=== PATIENT | male | born 1990 | race Caucasian/White ===

== ENCOUNTER 2022-08-10 15:32 | Emergency (ER) | payer SELFPAY ==
--- NOTE | ~2022-08-10 | US_ITS ---
EXAMINATION: US SCROTUM CLINICAL INFORMATION: Right testicular pain. COMPARISON: None available. TECHNIQUE: A sonogram of the scrotum was performed assessing zepeda-scale appearance and color Doppler flow. Spectral Doppler analysis of the arterial and venous flow were performed in the testes bilaterally. FINDINGS: RIGHT: Right testicle measures 4.9 x 2.2 x 2.7 cm, volume 15.1 mL. No focal testicular parenchymal lesions are visualized. Spectral Doppler analysis of the arterial and venous flow is normal in the right testis. Right epididymal head is normal in size. No right hydrocele or varicocele is seen. Right epididymal Doppler flow is normal. LEFT: Left testicle measures 4.9 x 2.2 x 2.8 cm, volume 15.2 mL. No focal testicular parenchymal lesions are visualized. Spectral Doppler analysis of the arterial and venous flow is normal in the left testis. Left epididymal head is normal in size. No left hydrocele is seen. There are left varicoceles. Left epididymal Doppler flow is normal. US/US scrotum IMPRESSION: There are left varicoceles. The examination is otherwise unremarkable.
--- NOTE | ~2022-08-10 | US_ITS ---
EXAMINATION: US pelvic, limited, LIMITED/FOLLOW UP CLINICAL INFORMATION: Right inguinal hernia COMPARISON: None available. TECHNIQUE: Real-time ultrasound of the right inguinal region, in the area of previous hernia repair FINDINGS: No obvious hernia is seen. The patient is status post right inguinal hernia repair in March 2022. A 2.6 x 0.6 x 1.6 cm benign-appearing lymph node is seen in the right inguinal area. US/US pelvic limited IMPRESSION: No obvious hernia is seen.
--- NOTE | ~2022-08-10 | CT_ITS ---
EXAMINATION: CT ABDOMEN AND PELVIS WITHOUT CONTRAST CLINICAL INFORMATION: Right inguinal pain with Valsalva. COMPARISON: Pelvic ultrasound from today TECHNIQUE: Multidetector volumetric imaging was performed from the superior aspect of the liver through the pubic symphysis. Examination done during Valsalva. Sagittal and coronal reformatted images were obtained on the technologist's workstation. This CT examination was performed using dose optimization techniques as appropriate, variously including the following: *Automated exposure control *Adjustment of mA and/or kV according to patient size (this includes techniques or standardized protocols for targeted exams where dose is matched to indication/reason for exam; i.e. extremities or head) *Use of iterative reconstruction technique DLP: 552 mGy-cm FINDINGS: LUNG BASES: The visualized lung bases are unremarkable. LIVER, GALLBLADDER, AND BILIARY TREE: The liver is normal in size, shape, and attenuation. No focal hepatic lesion or biliary ductal dilatation is present. The gallbladder is unremarkable with no evidence of radiopaque gallstones, gallbladder wall thickening, or obvious pericholecystic inflammatory changes. PANCREAS: Unremarkable. SPLEEN: Unremarkable. ADRENAL GLANDS: Unremarkable. KIDNEYS AND URETERS: The kidneys are normal in size, shape, and attenuation. Rotated orientation of the right kidney. No hydronephrosis, hydroureter, or calculi seen. No perinephric stranding. BLADDER: Decompressed with no gross abnormality. GASTROINTESTINAL TRACT: The stomach is unremarkable. Normal caliber small bowel. There is no obstruction. No colonic wall thickening or inflammation. Mild to moderate diffuse colonic stool burden. Normal appendix. No free air or free fluid. ABDOMINAL WALL: Scarring along the right inguinal region from prior hernia repair. No hernia seen at this time. Prominent vessels seen in the inguinal canals and in the scrotum suggestive of possible varicoceles. No abdominal wall mass. LYMPH NODES: Normal. VASCULAR: Unremarkable. PELVIC VISCERA: The prostate and seminal vesicles are unremarkable. OSSEOUS STRUCTURES: No acute or suspicious osseous abnormality. Transitional anatomy of the lumbosacral junction. CT/CT abdomen pelvis wo IV con IMPRESSION: 1. No right inguinal hernia. Scarring along the right inguinal region from prior hernia repair. 2. Prominent vessels in the inguinal canals and scrotum suggestive of possible varicoceles. 3. Mild to moderate colonic stool burden. Fleischner guidelines were followed.
--- NOTE | ~2022-08-10 | US_ITS ---
EXAMINATION: US SCROTUM CLINICAL INFORMATION: Right testicular pain. COMPARISON: None available. TECHNIQUE: A sonogram of the scrotum was performed assessing zepeda-scale appearance and color Doppler flow. Spectral Doppler analysis of the arterial and venous flow were performed in the testes bilaterally. FINDINGS: RIGHT: Right testicle measures 4.9 x 2.2 x 2.7 cm, volume 15.1 mL. No focal testicular parenchymal lesions are visualized. Spectral Doppler analysis of the arterial and venous flow is normal in the right testis. Right epididymal head is normal in size. No right hydrocele or varicocele is seen. Right epididymal Doppler flow is normal. LEFT: Left testicle measures 4.9 x 2.2 x 2.8 cm, volume 15.2 mL. No focal testicular parenchymal lesions are visualized. Spectral Doppler analysis of the arterial and venous flow is normal in the left testis. Left epididymal head is normal in size. No left hydrocele is seen. There are left varicoceles. Left epididymal Doppler flow is normal. US/US scrotum doppler IMPRESSION: There are left varicoceles. The examination is otherwise unremarkable.
--- NOTE | ~2022-08-10 | XR_ITS ---
EXAMINATION: XR SHOULDER, RIGHT CLINICAL INFORMATION: Right shoulder pain status post fall. COMPARISON: None available. TECHNIQUE: AP external rotation, Grashey, scapular Y, and axillary views of the right shoulder. FINDINGS: The bones and soft tissues are normal. No fracture. Glenohumeral and acromioclavicular alignment is anatomic with normal joint space. No abnormal soft tissue calcifications. XR/XR shoulder RT min 2V IMPRESSION: Unremarkable right shoulder.
[2022-08-10 15:46] VITALS: BP 139/73; PULSE 75; RESP 18; TEMP 36.6; O2SAT 97; BMI 28.1
--- NOTE | 2022-08-10 15:46 | ED.GENADULT ---
HPI - General Adult General Chief complaint: General Medical Stated complaint: right shoulder/ hernia Time Seen by Provider: 08/10/22 18:58 Source: patient Mode of arrival: ambulatory Limitations: no limitations History of Present Illness HPI narrative: This is a 31-year-old male presenting to the emergency department complaints of right inguinal pain, and right shoulder pain. Patient reports today he is heavy lifting a heavy case at work, immediately started experiencing severe right-sided inguinal pain, and he fell back hyperextending his right shoulder, since then has not been able to lift shoulder above head. He has painful range of motion to the right shoulder since then. Patient reports he has been having constant severe pain to the right inguinal region for a few weeks worsening over the past few days and precipitated by heavy lifting. Tells me at times when he lifts heavy objects it goes into his testicles however no testicular pain at this time. Patient denies fevers, chills, nausea, vomiting, headache, vision changes, dizziness, weakness, chest pain, shortness of breath. When patient fell no head strike or loss of consciousness Patient did have an open hernia repair with mesh placement in March 2022 at [facility]. Related Data Previous Rx's Medication Instructions Recorded ketorolac 10 mg tablet 10 mg PO TID PRN pain 5 days #15 08/10/22 tabs Allergies Allergy/AdvReac Type Severity Reaction Status Date / Time Penicillins Allergy Intermediate Hives Verified 08/10/22 15:52 Review of Systems Review of Systems: Constitutional : No Weight loss, No Fever, No Chills, No Fatigue, No Malaise ENT/Mouth : No sore throat, No Rhinorrhea Eyes: No Eye Pain, No Swelling, No Redness Cardiovascular : No Chest Pain, No SOB, No Dyspnea on Exertion, No Orthopnea, No Edema, No Palpitations Respiratory : No Cough, No Sputum, No Wheezing Gastrointestinal : No Nausea, No Vomiting, No Diarrhea, No Constipation, + abdominal Pain, No Hematochezia, No Melena Genitourinary : No Dysuria, No Urinary Frequency, No Hematuria, Musculoskeletal : + joint pain, No Myalgias, No Joint Swelling Skin : No Skin Lesions, No rash Neuro : No Weakness, No Numbness, No Dizziness, No Headache Psych : No Anxiety/Panic, No Depression All other systems reviewed and are negative Yes all other systems are reviewed and are negative [facility] Past Medical History Attestation statement: The following information was validated with the patient. Source: old records reviewed and nursing notes reviewed Social History Social History Alcohol intake: never Smoked in Last 30 Days: No Use of substances other than those prescribed or required for medical reasons: No Advance Directives: No Advance Directives Information Provided: No Physical Exam ED Vital Signs: Vital Signs - 24 hr 08/10/22 15:46 08/10/22 19:51 Temperature 97.9 F 97.4 F Pulse Rate 75 58 Respiratory Rate 18 18 Blood Pressure 139/73 147/71 H Pulse Oximetry 97 99 Oxygen Delivery Method Room Air Room Air BMI result Body Mass Index 28.1 vss Appearance: Alert.? Oriented X3.? No acute distress.? Head: Normocephalic, atraumatic, no step-offs or deformities Eyes: Pupils equal, round and reactive to light.? Neck: Normal inspection.? Neck supple.? CVS: Normal heart rate and rhythm.? Pulses normal.? Respiratory: No respiratory distress.? Breath sounds normal.? Abdomen: Soft and + RLQ tenderness.? Genital: + pain with palpation overlying the right inguinal region overlying the surgical scar, surgical scar is linear in approximately 3-4 cm. No palpable bulge or hernia. Skin: Skin warm and dry.? Normal skin color.? Normal skin turgor.? Extremities: No lower extremity edema.? No calf ttp. 5/5 strength to bilateral upper and lower extremities +painful range of motion of right shoulder particularly with overhead movements, patient reports he is unable to lift his right shoulder above his head secondary to pain discomfort. 2+ radial pulses equal bilateral. No wrist drop. Cap refill less than 2 seconds bilateral upper extremity digits. Back: No midline tenderness, no C-spine tenderness, full range of motion, no CVA tenderness bilaterally Neuro: Oriented X 3.? No motor deficit.? No sensory deficit. CN 2-12 intact Course Course Course Narrative: RME - 31 y/o male presents with hx of right inguinal hernia repair, who states that he lifted something and felt something pop in his right groin at 3pm today, he fell backwards and hurt his right shoulder. States that he cannott left behind head. Limited ROM in right arm. Plan: pelvic U/S to look for right inguinal hernia, Xray of right shoulder Reevaluation(s) Reevaluation #1: CBC within normal limits. Chemistry unremarkable. Pelvic ultrasound with no obvious hernia seen. X-ray shoulder unremarkable. Still concerns for possible ligament or tendon injury, advised him to follow-up with the orthopedic team may require an MRI. Will give Toradol for pain. Did speak to surgery but this case recommends a CT pelvis with Valsalva, will also obtain abdomen CT as patient does have right lower quadrant pain to rule out appendicitis. Urine pending. Time: 19:47 Reevaluation #2: UA without infection. Scrotal ultrasound with left-sided varicoceles. Normal flow. No signs of torsion. CT abdomen and pelvis with no right inguinal hernia, scarring along the right inguinal region from prior hernia repair. Prominent vessels in the inguinal canals and scrotum suggestive of possible varicoceles. Qipt-th-uixsnept stool burden. Patient feeling better after Toradol. This case was discussed surgery, nothing to be done acutely about right-sided inguinal pain. Will have him follow-up with his surgeon, and PCP. Will also have him follow-up with ortho for right shoulder pain. Advised return with new or worsening symptoms. Educated patient on diagnosis and treatment plan, answered all question, patient verbalizes understanding. At this time patient will be discharged home, advised to return with new or worsening symptoms. Educated on worrisome signs and symptoms and when to return. At this time I feel comfortable discharge home. Time: 22:18 Medical Decision Making Medical Decision Making [facility] Narrative: 1930 31-year-old male presents with right inguinal pain and right shoulder pain, precipitated by heavy lifting. Patient reports shoulder pain started after his lifting heavy case at work. Physical exam painful range of motion of right shoulder particularly with overhead movements, patient reports he is unable to lift his right shoulder above his head secondary to pain discomfort. 2+ radial pulses equal bilateral. No wrist drop. Cap refill less than 2 seconds bilateral upper extremity digits. There is pain to palpation overlying the right inguinal region, no palpable bulges or hernias. Concerns for possible seroma to right inguinal region or possible inguinaldynia. Unlikely testicular torsion. Unlikely UTI. Patient does have abdominal tenderness to the right lower quadrant concerns for possible appendicitis. Unlikely acute abdomen, cholecystitis, pancreatitis or diverticulitis. Plan imaging, urine, basic labs. Differential Diagnosis Differential Diagnoses: The differential diagnosis associated with the presentation includes Concerns for possible seroma to right inguinal region or possible inguinaldynia. Unlikely testicular torsion. Unlikely UTI. Patient does have abdominal tenderness to the right lower quadrant concerns for possible appendicitis. Unlikely acute abdomen, cholecystitis, pancreatitis or diverticulitis. Admission/Observation Consideration of admission/observation: Escalation of care including admission/observation considered Unlikely Consult Healthcare Provider Management of the patient was discussed with: Dental Chair Assembler (Surgery) Lab Data MDM Lab Attestation statement: I reviewed the patient's lab results. 08/10/22 16:30 08/10/22 16:30 Labs: Lab Results 08/10/22 08/10/22 08/10/22 Range/Units 16:30 16:30 20:07 WBC 8.7 (4.8-10.8) X10*3/uL RBC 5.15 (4.60-5.80) X10*6/uL Hgb 15.5 (14.0-18.0) g/dl Hct 44.3 (42.0-52.0) % MCV 86.0 (80.0-98.0) fL MCH 30.1 (27.0-33.0) pg MCHC 35.0 (31.0-36.0) g/dl RDW 12.6 (11.0-16.0) % Plt Count 274 (160-400) X10*3/uL MPV 9.1 L (9.4-12.4) fL Immature Gran % (Auto) 0.3 (0.0-0.4) % Neut % (Auto) 64.4 (45-73) % Lymph % (Auto) 26.6 (20-40) % [place] % (Auto) 6.9 (2-11) % Eos % (Auto) 1.2 (0-4) % Baso % (Auto) 0.6 (0-2) % Lymph # (Auto) 2.3 (1.2-4.9) X10*3/uL [place] # (Auto) 0.6 (0.1-1.2) X10*3/uL Eos # (Auto) 0.1 (0.0-0.4) X10*3/uL Baso # (Auto) 0.1 (0.0-0.2) X10*3/uL Abs Immat Gran (auto) 0.03 (0.00-0.03) X10*3/uL Absolute Neuts (auto) 5.6 (2.0-8.3) x10*3/uL Absolute Nucleated RBC 0.000 (0.0-0.012) X10*3/uL Nucleated RBC % (auto) 0.0 (0.0-0.2) /100WBC Sodium 141 (135-145) mmol/L Potassium 4.6 (3.3-5.1) mmol/L Chloride 106 (96-108) mmol/L Carbon Dioxide 27 (22-29) mmol/L Anion Gap 13 (12-20) BUN 19 H (9-16) mg/dL Creatinine 1.17 (0.5-1.4) mg/dL Estim Creat Clear Calc 99.4 Estimated GFR > 60 Random Glucose 103 (60-115) mg/dL Calcium 9.9 (8.4-10.2) mg/dL Urine Color Yellow Urine Appearance Clear Urine pH 6.5 (5.0-9.0) Ur Specific [place] 1.025 (1.005-1.025) Urine Protein Negative (Neg-Trace) mg/dL Urine Glucose (UA) Negative (Negative) mg/dL Urine Ketones Negative (Negative) mg/dL Urine Blood Negative (Negative) Urine Nitrite Negative (Negative) Ur Leukocyte Esterase Negative (Negative) Independent Interpretation I performed an independent interpretation of an: Ultrasound and CT Scan Radiology Impression Discussion of test interpretation with radiology: I have reviewed the radiologist's reading. External Record Review External record reviewed: Inpatient record, Office record, Outpatient record, Prior outpatient labs, Prior outpatient radiology, Primary care record and Outside ED record Prescription Management I considered prescription management with: Pain Medication Core Measures AMI core measures followed: Yes Measure exclusions: not indicated Critical Care Time Critical Care Time Critical Care Time: No Discharge Plan Discharge Clinical Impression: Right groin pain, Acute pain of right shoulder, Right varicocele Patient Disposition: Home, Self-Care Instructions: Arthralgia (ED), Heat Pack Application (ED) Additional Instructions: Take your medications as prescribed. If you were prescribed antibiotics today, it is important that you take your medication to their entirety, do not skip any doses, do not finish them early. Follow-up with your primary care provider this week. Return to the emergency department with new or worsening symptoms. Such as fevers, chills, chest pain, shortness of breath, nausea, vomiting, dizziness, headache, vision changes, lethargy In case of emergency call 911 Follow-up with your surgeon who did the hernia repair. Please follow-up with the orthopedic team for right shoulder pain you may require an MRI for further evaluation of ligaments and tendons Toradol has been sent to your pharmacy, you tolerated this well in the department. Please take this as prescribed do not take this with ibuprofen, or other NSAIDs, do not mix this with alcohol. Side effects of this medication including increased risk for bleeding and possible kidney injury. XR/XR shoulder RT min 2V IMPRESSION: Unremarkable right shoulder. US/US pelvic limited IMPRESSION: No obvious hernia is seen. CT/CT abdomen pelvis wo IV con IMPRESSION: 1.? No right inguinal hernia. Scarring along the right inguinal region from prior hernia repair. 2.? Prominent vessels in the inguinal canals and scrotum suggestive of possible varicoceles. 3.? Mild to moderate colonic stool burden. ? ?US/US scrotum IMPRESSION: There are left varicoceles. The examination is otherwise unremarkable. Prescriptions: New ketorolac 10 mg tablet 10 mg PO TID PRN (Reason: pain) 5 Days Qty: 15 0RF Referrals: [facility] [place] Orthopedic Surgeons [Provider Group] - 2 days [facility] [place] Urology Services [Provider Group] - 1 week Miguel Angel Dumont MD [Primary Care Provider] - 2 days Stand Alone Forms: Work/School Release
[2022-08-10 16:35] LABS: MANUAL DIFF FLAG NO
[2022-08-10 16:36] LABS: Basophils Absolute Auto 0.1 X10*3/uL (0.0-0.2); Basophils Percent Auto 0.6 % (0-2); Eosinophils Absolute Auto 0.1 X10*3/uL (0.0-0.4); Eosinophils Percent Auto 1.2 % (0-4); Hematocrit 44.3 % (42.0-52.0); Hemoglobin 15.5 g/dl (14.0-18.0); Imm Gran Abs Auto 0.03 X10*3/uL (0.00-0.03); Imm Gran Pct Auto 0.3 % (0.0-0.4); Lymphocytes Absolute Auto 2.3 X10*3/uL (1.2-4.9); Lymphocytes Percent Auto 26.6 % (20-40); Mean Corpuscular Hemoglobin 30.1 pg (27.0-33.0); Mean Platelet Volume 9.1 fL (9.4-12.4); Monocytes Absolute Auto 0.6 X10*3/uL (0.1-1.2); Monocytes Percent Auto 6.9 % (2-11); Neutrophils Absolute Auto 5.6 x10*3/uL (2.0-8.3); Neutrophils Percent Auto 64.4 % (45-73); Platelet Count 274 X10*3/uL (160-400); Red Blood Count 5.15 X10*6/uL (4.60-5.80); Red Cell Distribution Width 12.6 % (11.0-16.0); White Blood Count 8.7 X10*3/uL (4.8-10.8)
[2022-08-10 16:49] LABS: Anion Gap 13 (12-20); Blood Urea Nitrogen 19 mg/dL (9-16); Calcium 9.9 mg/dL (8.4-10.2); Carbon Dioxide 27 mmol/L (22-29); Chloride 106 mmol/L (96-108); Creatinine Clr Calc Pharmacy 99.4; Estimated Glomerular Filt Rate > 60; Glucose Random 103 mg/dL (60-115); Potassium 4.6 mmol/L (3.3-5.1); Sodium 141 mmol/L (135-145)
[2022-08-10 19:51] VITALS: BP 147/71; PULSE 58; RESP 18; TEMP 36.3; O2SAT 99
[2022-08-10 20:20] LABS: Appearance Urine Clear; Color Urine Yellow; Glucose Urine UA Negative (Negative); Leukocyte Esterase Urine Negative (Negative); Nitrite Urine Negative (Negative); PH 6.5 (5.0-9.0); Specific Gravity - Urine 1.025 (1.005-1.025); Urine Blood Negative (Negative); Urine Ketones Negative (Negative); Urine Protein Negative (Neg-Trace)
--- NOTE | 2022-08-10 20:53 | PC.NURSE ---
Patient resting on stretcher at this time. No s/s of distress noted.
--- NOTE | 2022-08-10 23:01 | PC.NURSE ---
This RN assumed care for this patient [id number]. Discharge instructions and summary given as per MD assessment
[2022-08-10] MEDS: Ketorolac Tromethamine 15 MG/ML VIAL 30 MG IM (23:05)
== END 2022-08-10 23:16 | disposition home or self-care (01) ==
PROVIDERS: Physician Assistant; Emergency Provider Student in an Organized Health Care Education/Training Program; PCP Internal Medicine
DX: M25.511 Pain in right shoulder (principal); G89.11 Acute pain due to trauma; R10.31 Right lower quadrant pain; I86.1 Scrotal varices
CPT/HCPCS: 36415; 73030; 74176; 76857; 76870; 80048; 81003; 85025; 93975; 96372; 99284; J1885

== ENCOUNTER 2023-10-24 14:09 | Outpatient (AMB) | payer OTHER, SELFPAY ==
--- NOTE | 2023-10-24 14:24 | MHC.PC.OV ---
Vital Signs 10/24/23 14:31 Height 5 ft 8.5 in Weight 193 lb BMI 28.9 BP 118/70 Blood Pressure Location Lt brachial Position Sitting Respiration 14 Pulse 65 Pulse Source Pulse Oximeter Temp 98.2 F Temp Source Oral Pulse Oximetry (%) 99 Oxygen Delivery Method Room Air Intake Visit Reasons: Transfer from 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 Patient transferred from my panel at [facility] primary care. 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 He is working out 4-5 times per week. He has a treadmill at home. No chest pain or shortness of breath. He lives with his [facility]. He is compliant with INR checks. He is followed by the [facility] Coumadin clinic. Patient's music pastor is Dr. Neris Flores at [facility]. Patient has very stable bipolar disorder. He has been on the same regimen for years. No longer sees a therapist or psychiatrist. Patient is taking omeprazole for GERD. Symptoms return if he stops taking the medication. ROS: Constitutional: No unexplained weight loss, fever, chills, fatigue or night sweats. Eyes: Left eye blindness. No vision changes. Respiratory: No shortness of breath, cough or sputum production. Cardiovascular: No chest pain, chest pressure or chest discomfort. No palpitations or pedal edema. Gastrointestinal: No anorexia, nausea, vomiting or diarrhea. No abdominal pain or blood in stool. Neurologic: No headache, dizziness, syncope. + chronic numbness of right hand due to radial nerve palsy. Hematologic/Lymphatics: No bleeding or bruising. No painful lymph nodes. Endocrine: No cold or heat intolerance. No polyuria or polydipsia. Psychiatric: No depression or anxiety. No SI/HI. Physical exam: Constitutional: Alert, in no distress. Head: Normocephalic. Neck: Supple, Full range of motion. No lymphadenopathy. Respiratory: Clear to auscultation. Cardiovascular: S1 S2 regular. Mechanical heart sounds. + heart murmur. No edema. Gastrointestinal: Abdomen soft, non-tender, non-distended. Normal bowel sounds. No palpable masses. 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 DIC (disseminated intravascular coagulation) Depression Daytime somnolence Central retinal artery occlusion, left eye Bipolar 1 disorder Aorta aneurysm Abnormal CXR Right radial nerve palsy Insomnia Bipolar disorder Chronic anticoagulation History of cardiac arrest Surgical History (Updated 10/24/23 @ 14:44 by Almita Faustin CMA) History of open heart surgery S/P AVR H/O aortic valve replacement Family History (Updated 10/24/23 @ 14:47 by Almita Faustin CMA) Maternal Grandfather Breast cancer Diabetes Social History (Updated 10/24/23 @ 14:46 by Almita Faustin CMA) Housing: House Alcohol intake: never Patient Tobacco Use Status: Never used Tobacco e-Cigarette/Vaping Use: Never Used Second Hand Smoke Exposure: No service: No Current occupational status: employed Current occupation: [employer] Current occupational exposures/hazards: Yes ( everything ) Cognitive needs: No Hearing needs: No Vision needs: Yes (Legally blind in left eye) Questionnaire PHQ-9 Over the last 2 weeks, how often have you been bothered by any of the following problems? 1. Little interest or pleasure in doing things: more than half the days 2. Feeling down, depressed, or hopeless: more than half the days 3. Trouble falling or staying asleep, or sleeping too much: more than half the days 4. Feeling tired or having little energy: more than half the days 5. Poor appetite or overeating: not at all 6. Feeling bad about yourself - or that you are a failure or have let yourself or your family down: more than half the days 7. Trouble concentrating on things, such as reading the newspaper or watching television: not at all 8. Moving or speaking so slowly that other people could have noticed. Or the opposite - being so fidgety or restless that you have been moving around a lot more than usual: not at all 9. Thoughts that you would be better off or of hurting yourself in some way: not at all Total score: 10 Depression Screening Interpretation: Positive Depression Screening Done: Yes 79608 - PHQ-9 Billing: Yes Source: Developed by Drs. Gasper Pavon, Caprice Melchor, Barber Goodwin and colleagues, with an educational brian from [employer]. Thrive Questionnaire Date Thrive assessed: 10/24/23 I am a: Patient What is your living situation today?: I have a steady place to live Within the past 12 months, did the food you bought not last and you didn't have the money to get more?: Never true Within the past 12 months, did you worry whether your food would run out before you got money to buy more?: Never true Do you have trouble paying for medicines?: No Do you have trouble getting transportation to medical appointments?: No Do you have trouble paying your heating and electricity bill?: No Do you have trouble taking care of your child, family member or friend?: No Do you have trouble with day-to-day activities such as bathing, preparing meals, shopping, managing finances, etc.?: No Are you currently unemployed and looking for a job?: No Are you interested in more education?: No Please select the resources that you would like help with: None Currently or been in a relationship where the following occur: No concerns reported THRIVE Score: 0 AUDIT C Alcohol Use Questionnaire (AUDIT-C) 1. How often do you have a drink containing alcohol?: Never 3. How often do you have six or more drinks on one occasion?: Never Total Score: 0 PRATIK-7 AMB Questionnaire PRATIK-7 Date PRATIK - 7 assessed: 10/24/23 Feeling nervous, anxious, or on edge: 0 = Not at all Not being able to stop or control worryin = Not at all Worrying too much about different things: 0 = Not at all Trouble relaxin = Not at all Being so restless that it is hard to sit still: 0 = Not at all Becoming easily annoyed or irritable: 0 = Not at all Feeling afraid as if something awful might happen: 0 = Not at all Total PRATIK-7 score (0-4 normal; 5-9 mild; 10-14 moderate; 15-21 severe): 0 Source: Developed by Drs. Gasper Pavon, Caprice Melchor, Barber Goodwin and colleagues, with an educational brian from [employer]. PRATIK-7 Assessment Billing PRATIK-7 Assessment Tool: PRATIK-7 Assessment 63700 Physical exam (Primary Care) Vital Signs: Last Vital Signs Temp 98.2 F 10/24/23 14:31 Pulse 65 10/24/23 14:31 Resp 14 10/24/23 14:31 BP 118/70 10/24/23 14:31 Pulse Ox 99 10/24/23 14:31 Oxygen Delivery Method Room Air 10/24/23 14:31 BMI result Body Mass Index 28.9 Tobacco/Smoking Status: Tobacco use Status Tobacco use date assessed 10/24/23 10/24/23 14:43 Patient Tobacco Use Status Never used Tobacco 10/24/23 14:46 e-Cigarette/Vaping Use Never Used 10/24/23 14:46 PHQ-9: PHQ-9 Score PHQ-9: Total score 10 10/24/23 14:50 Depression Screening Interpretation: Positive Thrive Assessment: Date of Thrive Assessment Date Thrive assessed 10/24/23 10/24/23 14:50 Currently or been in a relationship where the following occur: No concerns reported Assessment and Plan Assessment & Plan (1) Bipolar 1 disorder: Code(s): F31.9 - Bipolar disorder, unspecified (2) Bipolar disorder: Code(s): F31.9 - Bipolar disorder, unspecified Qualifiers: Active/Remission status: currently active Current bipolar episode type: depressed Current episode severity: mild Qualified Code(s): F31.31 - Bipolar disorder, current episode depressed, mild (3) Central retinal artery occlusion, left eye: Code(s): H34.12 - Central retinal artery occlusion, left eye (4) H/O aortic valve replacement: Comment: On-X valve Code(s): Z95.2 - Presence of prosthetic heart valve (5) Chronic anticoagulation: Code(s): Z79.01 - custodial (current) use of anticoagulants (6) GERD (gastroesophageal reflux disease): Code(s): K21.9 - Gastro-esophageal reflux disease without esophagitis Plan In summary this is a 32-year-old male with complex cardiac history followed by Cardiology at [facility]. He is on lifetime anticoagulation with Coumadin and followed by the [facility] Coumadin clinic. Referral sent. Compliant with INR checks. Continue current medications. Patient has been stable on his psych regimen for years. Offered referral to psychiatrist, but he would prefer I continue prescribing unless an issue comes up. Continue omeprazole for GERD. Patient has symptoms when he tries to discontinue med. Lifestyle modifications reviewed. Schedule physical in 6 months. 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) use of anticoagulants, Z95.2 - Presence of prosthetic heart valve Medications: New omeprazole 20 mg PO ONCE 90 caps 3RF Discontinued ketorolac Discontinued Reason: Patient no longer taking 10 mg PO TID 5 days PRN 15 tabs 0RF pain Coding Level of Care Code Est Pt Level 4 (44431) Complex EM visit Add On G2211 Diagnoses Bipolar 1 disorder F31.9 Bipolar affective disorder, currently depressed, mild F31.31 Active/Remission status: currently active Current bipolar episode type: depressed Current episode severity: mild Central retinal artery occlusion, left eye H34.12 H/O aortic valve replacement Z95.2 Chronic anticoagulation Z79.01 GERD (gastroesophageal reflux disease) K21.9 Additional Codes PRATIK-7 Assessment Billing - PRATIK-7 Assessment Tool: PRATIK-7 Assessment 95808 ([id number])
[2023-10-24 14:31] VITALS: BP 118/70; PULSE 65; RESP 14; TEMP 36.8; O2SAT 99; BMI 28.9
== END 2023-10-24 15:04 | disposition home or self-care (01) ==
PROVIDERS: PCP Physician Assistant Medical; Visit Provider Physician Assistant Medical
DX: F31.9 Bipolar disorder, unspecified (principal); F31.31 Bipolar disorder, current episode depressed, mild; H34.12 Central retinal artery occlusion, left eye; Z95.2 Presence of prosthetic heart valve; Z79.01 Long term (current) use of anticoagulants; K21.9 Gastro-esophageal reflux disease without esophagitis
CPT/HCPCS: 96127; 99214; G2211

== ENCOUNTER 2024-05-07 09:46 | Outpatient (AMB) | payer OTHER, SELFPAY ==
--- NOTE | 2024-05-07 09:59 | MHC.PC.OV ---
Vital Signs 05/07/24 10:05 Weight 202 lb 6 oz BP 130/80 Blood Pressure Location Lt brachial Position Sitting Respiration 14 Pulse 80 Pulse Source Pulse Oximeter Pulse Oximetry (%) 99 Oxygen Delivery Method Room Air Intake Visit Reasons: checked for sleep apnea Intake Note: Discuss sleep apnea. [employer] Template Maker Required: No Allergies Penicillins Allergy (Intermediate, Verified 05/07/24 10:02) Hives heparin Allergy (Unknown, Verified 05/07/24 10:02) Unknown Tobacco use date assessed: 10/24/23 Dental Screening Dental Screen Date: 10/24/23 HPI HPI Comments History of Present Illness Details This is a 33-year-old male with a past medical history of GERD, left eye blindness, history of aortic valve replacement, history of cardiac arrest, chronic anticoagulation, bipolar disorder, insomnia presenting to discuss possible sleep apnea. The patient endorses chronic fatigue for 20 years. He naps every day, and he even did this back in high school. Patient reports snoring, non restorative sleep. He will doze off if he is watching a TV show at home. Patient also says that he makes a weird sound in his sleep that was reported by his family members and then he wakes himself up gasping for air. He has tried using a wedge pillow, nasal sprays and breathe right strips. He denies nasal congestion or sinus issues. Patient has never had a sleep study. He does not drink alcohol. He reports he is still seeing the same therapist, and he is stable on his psychiatric medications. He also reports having the flu and pneumonia vaccines done at [facility] this season. He has a follow up with his eligibility supervisor in [place] next week, and they will do a routine stress test and echocardiogram for him. ROS: Constitutional: No unexplained weight loss, fever, chills or night sweats. ENT: No hearing loss, sneezing, congestion, runny nose or sore throat. Respiratory: No shortness of breath, cough or sputum production. Cardiovascular: +Stable pain at surgical site since surgery. No exertional chest pain, chest pressure or chest discomfort. No palpitations or pedal edema. Gastrointestinal: No anorexia, nausea, vomiting or diarrhea. No abdominal pain or blood in stool. Neurologic: No headache, dizziness, syncope Physical exam: Constitutional: Alert, in no distress. Eyes: Pupils are equal, round and reactive to light. Extraocular muscles intact. Ear, Nose and Throat: Canals clear. TMs normal. Normal nasal mucosa. No nasal discharge. No oral lesions. Neck: Supple, Full range of motion. No lymphadenopathy. No palpable thyroid masses. Respiratory: Clear to auscultation. Cardiovascular: S1 S2 regular. Mechanical heart sounds. + heart murmur. Extremities: Warm and well perfused. No clubbing, cyanosis or edema. 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 DIC (disseminated intravascular coagulation) Depression Daytime somnolence Central retinal artery occlusion, left eye Bipolar 1 disorder Aorta aneurysm Abnormal CXR Right radial nerve palsy Insomnia Bipolar disorder Chronic anticoagulation History of cardiac arrest Surgical History (Updated 10/24/23 @ 14:44 by Almita Faustin CMA) History of open heart surgery S/P AVR H/O aortic valve replacement Family History (Updated 10/24/23 @ 14:47 by Almita Faustin CMA) Maternal Grandfather Breast cancer Diabetes Social History (Updated 10/24/23 @ 14:46 by Almita Faustin CMA) Housing: House Alcohol intake: never Patient Tobacco Use Status: Never used Tobacco e-Cigarette/Vaping Use: Never Used Second Hand Smoke Exposure: No service: No Current occupational status: employed Current occupation: [employer] Current occupational exposures/hazards: Yes ( everything ) Cognitive needs: No Hearing needs: No Vision needs: Yes (Legally blind in left eye) Questionnaire PHQ-9 Over the last 2 weeks, how often have you been bothered by any of the following problems? 1. Little interest or pleasure in doing things: nearly every day 2. Feeling down, depressed, or hopeless: nearly every day 3. Trouble falling or staying asleep, or sleeping too much: nearly every day 4. Feeling tired or having little energy: nearly every day 5. Poor appetite or overeating: nearly every day 6. Feeling bad about yourself - or that you are a failure or have let yourself or your family down: nearly every day 7. Trouble concentrating on things, such as reading the newspaper or watching television: nearly every day 8. Moving or speaking so slowly that other people could have noticed. Or the opposite - being so fidgety or restless that you have been moving around a lot more than usual: not at all 9. Thoughts that you would be better off or of hurting yourself in some way: nearly every day Total score: 24 Source: Developed by Drs. Gasper Pavon, Caprice Melchor, Barber Goodwin and colleagues, with an educational brian from [employer]. Thrive Questionnaire Date Thrive assessed: 10/24/23 I am a: Patient What is your living situation today?: I have a steady place to live Within the past 12 months, did the food you bought not last and you didn't have the money to get more?: Never true Within the past 12 months, did you worry whether your food would run out before you got money to buy more?: Never true Do you have trouble paying for medicines?: No Do you have trouble getting transportation to medical appointments?: No Do you have trouble paying your heating and electricity bill?: No Do you have trouble taking care of your child, family member or friend?: No Do you have trouble with day-to-day activities such as bathing, preparing meals, shopping, managing finances, etc.?: No Are you currently unemployed and looking for a job?: No Are you interested in more education?: No Please select the resources that you would like help with: None Currently or been in a relationship where the following occur: No concerns reported THRIVE Score: 0 AUDIT C Alcohol Use Questionnaire (AUDIT-C) 1. How often do you have a drink containing alcohol?: Never Total Score: 0 PRATIK-7 AMB Questionnaire PRATIK-7 Date PRATIK - 7 assessed: 10/24/23 Feeling nervous, anxious, or on edge: 3 = Nearly every day Not being able to stop or control worryin = Not at all Worrying too much about different things: 0 = Not at all Trouble relaxin = Not at all Being so restless that it is hard to sit still: 3 = Nearly every day Becoming easily annoyed or irritable: 3 = Nearly every day Feeling afraid as if something awful might happen: 0 = Not at all Total PRATIK-7 score (0-4 normal; 5-9 mild; 10-14 moderate; 15-21 severe): 9 Source: Developed by Drs. Gasper Pavon, Caprice Melchor, Barber Goodwin and colleagues, with an educational brian from [employer]. Physical exam (Primary Care) Vital Signs: Last Vital Signs Pulse 80 05/07/24 10:05 Resp 14 05/07/24 10:05 BP 130/80 05/07/24 10:05 Pulse Ox 99 05/07/24 10:05 Oxygen Delivery Method Room Air 05/07/24 10:05 Tobacco/Smoking Status: Tobacco use Status Tobacco use date assessed 10/24/23 05/07/24 10:01 Patient Tobacco Use Status Never used Tobacco 05/07/24 10:01 e-Cigarette/Vaping Use Never Used 05/07/24 10:01 PHQ-9: PHQ-9 Score PHQ-9: Total score 05/07/24 10:12 Thrive Assessment: Date of Thrive Assessment Date Thrive assessed 10/24/23 05/07/24 10:01 Currently or been in a relationship where the following occur: No concerns reported Coding Level of Care Code Est Pt Level 4 (77612) Complex EM visit Add On G2211 Diagnoses H/O aortic valve replacement Z95.2 Bipolar 1 disorder F31.9 Chronic fatigue R53.82 Non-restorative sleep G47.8 Assessment & Plan Assessment & Plan (1) H/O aortic valve replacement: Comment: On-X valve Code(s): Z95.2 - Presence of prosthetic heart valve Category: Surgical Plan: Patient is on lifetime anticoagulation. He will follow up with his cardiology team in [place] next week for a routine visit, stress test and echocardiogram. (2) Bipolar 1 disorder: Code(s): F31.9 - Bipolar disorder, unspecified Category: Medical Plan: Stable. Continue current medications. Followed by a therapist. (3) Chronic fatigue: Code(s): R53.82 - Chronic fatigue, unspecified Category: Medical Plan: Snoring, chronic fatigue, non restorative sleep and gasping arousals all concerning for untreated sleep apnea. Proceed with sleep study. Continue using a wedge pillow and avoid sleeping supine. Continue avoidance of alcohol. Weight loss encouraged. (4) Non-restorative sleep: Code(s): G47.8 - Other sleep disorders Category: Medical Plan Schedule physical exam in 4 months. Routine labs also ordered for the patient to have done fasting. Orders: Orders RT home sleep study Today G47.8 - Other sleep disorders, R06.89 - Other abnormalities of breathing, R53.82 - Chronic fatigue, unspecified Liver Panel Today F31.31 - Bipolar disorder, current episode depressed, mild, G47.00 - Insomnia, unspecified, K21.9 - Gastro-esophageal reflux disease without esophagitis, R53.82 - Chronic fatigue, unspecified, Z86.74 - Personal history of sudden cardiac arrest Complete Blood Count no Diff Today F31.31 - Bipolar disorder, current episode depressed, mild, G47.00 - Insomnia, unspecified, K21.9 - Gastro-esophageal reflux disease without esophagitis, R53.82 - Chronic fatigue, unspecified, Z86.74 - Personal history of sudden cardiac arrest Comprehensive Met. Panel Today F31.31 - Bipolar disorder, current episode depressed, mild, G47.00 - Insomnia, unspecified, K21.9 - Gastro-esophageal reflux disease without esophagitis, R53.82 - Chronic fatigue, unspecified, Z86.74 - Personal history of sudden cardiac arrest TSH reflex Free T4 Today F31.31 - Bipolar disorder, current episode depressed, mild, G47.00 - Insomnia, unspecified, K21.9 - Gastro-esophageal reflux disease without esophagitis, R53.82 - Chronic fatigue, unspecified, Z86.74 - Personal history of sudden cardiac arrest
[2024-05-07 10:05] VITALS: BP 130/80; PULSE 80; RESP 14; O2SAT 99
--- OUTSIDE RECORDS SUMMARY | 2024-05-07 10:57 | XMS_ITS | Data Portability ---
Author Organization LANIE [facility], [address] Address [place] [address] Assessment No assessment recorded. Plan of Treatment Reminders Order Date Submit Date Provider Last Modified By Organization Details Last Modified Time Details Appointments None record ed. Lab None record ed. Referral None record ed. Procedures None record ed. Surgeries None record ed. Imaging None record ed. Medication Orders None record ed. Patient TargetsNo targets recorded. Patient InstructionsNo instructions recorded. Reason for Referral None Reported. Procedures Surgical History Date Name Laterality Status Provider Name and Address Organization Details Recorded Time -UDS Send Out Template DOT completed Shreya [facility] 06/08/2023 14:47:24 Imaging Results None recorded. Procedure Notes None recorded. Medical Equipment None Reported. Vitals None Recorded Social History None recorded. Functional Status None recorded. Mental Status None recorded. Family History Nothing Reported. Medical History No medical history recorded. Past Encounters Encounter ID Performer Location Encounter Start Date Encounter Closed Date Diagnosis/Indication Diagnosis SNOMED-CT Code Diagnosis ICD10 Code Diagnosis Note [id number] 09005_Cor [facility] [place] [address] 02/19/2015 09:32:27 02/19/2015 10:28:43 [id number] 09005_Cor [place] [address] [place] [address] 03/21/2015 15:56:46 03/21/2015 16:31:28 [id number] 21005_Chi [facility] [address] [place] [address] 06/06/2020 19:49:49 06/06/2020 20:08:49 [id number] 20995_Chi [facility] [place] [address] 2016 16:13:14 2016 16:58:05 [id number] 20994_Wes [address] [address] 08/02/2019 10:34:44 08/02/2019 11:26:16 [id number] 09005_Cor alSprings [address] [place] [place] [address] 03/25/2016 18:19:55 03/25/2016 18:58:51 [id number] [address] [place] [address] 07/27/2021 08:03:50 07/27/2021 13:24:44 [id number] [address] [place] [address] 08/24/2021 08:54:36 08/24/2021 10:51:45 [id number] 20994_Wes [address] [address] 02/09/2019 10:07:56 02/09/2019 11:16:52 [id number] 20994_W[address] [address] 11/02/2019 11:07:40 11/02/2019 12:42:25 [id number] 21005_Chi cristieMemo rialDr [address] [place] [address] 08/19/2021 12:31:47 08/19/2021 14:34:38 [id number] 09005_Cor alSprings [address] [place] [place] [address] 05/25/2017 09:48:06 05/25/2017 10:14:20 [id number] 60019_Gol [facility] [address] [place] [address] 06/06/2018 11:23:23 06/06/2018 12:43:59 [id number] LANIE BEAVER [address] [address] 06/08/2023 14:34:10 06/08/2023 15:06:58 History and physical examination, occupation [id number] Z02.1 Health Concerns Section Related Observation LastModified by Organization Detai ls LastModified Time None Recorded Concern Status LastModified by Organization Details LastModified Time None Recorded Advance Directives Directive None Recorded Payers Encounter Date Sequence Insurance Name Policy Number Policy العلي Covered Member ID العلي Member ID Guarantor Name 06/08/2023 OC-ESCREEN Oc-Escree n [[id number]] FIFI Acosta
== END 2024-05-07 10:27 | disposition home or self-care (01) ==
PROVIDERS: PCP Physician Assistant Medical; Visit Provider Physician Assistant Medical
DX: Z95.2 Presence of prosthetic heart valve (principal); F31.9 Bipolar disorder, unspecified; R53.82 Chronic fatigue, unspecified; G47.8 Other sleep disorders

== ENCOUNTER → 2024-05-07 09:46 | Outpatient (BNVA) | payer OTHER, SELFPAY | PROVIDERS: PCP Physician Assistant Medical; Visit Provider Physician Assistant Medical | DX: F31.9 Bipolar disorder, unspecified (principal); R53.82 Chronic fatigue, unspecified; G47.8 Other sleep disorders; Z95.2 Presence of prosthetic heart valve; Z79.01 Long term (current) use of anticoagulants | CPT/HCPCS: 99212 ==

== ENCOUNTER 2024-07-06 14:12 | Outpatient (AMB) | payer OTHER, SELFPAY ==
--- OUTSIDE RECORDS SUMMARY | 2024-07-06 14:28 | XMS_ITS | Data Portability ---
Author Organization LANIE Bautista [facility], [address] [place] [address] Assessment No assessment recorded. Plan of Treatment [...] Name and Address Organization Details Recorded Time OC-UDS Send Out Template DOT completed Shreya Plata [...] SNOMED-CT Code Diagnosis ICD10 Code Diagnosis Note [id number] 09005_Cora lSprings 09005_Cor alSprings [address] [place] [address] 02/19/2015 09:32:27 02/19/2015 10:28:43 [id number] 09005_Cora lSprings 09005_Cor alSprings [address] [place] [address] 03/21/2015 15:56:46 03/21/2015 16:31:28 [id number] 20[address] 20995_Chi [facility] [address] [place] [address] 06/06/2020 19:49:49 06/06/2020 20:08:49 [id number] 20995[facility] [facility] [address] _Chi [address] [address] 2016 16:13:14 2016 16:58:05 [id number] 20994_[facility] _Wes [address] [address] 08/02/2019 10:34:44 08/02/2019 11:26:16 [id number] 09005_Cora lSprings 09005_Cor alSprings [address] [place] [address] 03/25/2016 18:19:55 03/25/2016 18:58:51 [id number] [address] [place] [address] 07/27/2021 08:03:50 07/27/2021 13:24:44 [id number] [address] [place] [address] 08/24/2021 08:54:36 08/24/2021 10:51:45 [id number] 2099_[facility] [address] [address] 02/09/2019 10:07:56 02/09/2019 11:16:52 [id number] 2099_[facility] [address] [address] 11/02/2019 11:07:40 11/02/2019 12:42:25 [id number] 20995_[address] al[address] _Chi [facility] 150[address] [place] [address] 08/19/2021 12:31:47 08/19/2021 14:34:38 [id number] 09005_Cora lSprings 09005_Cor alSprings [address] [place] [address] 05/25/2017 09:48:06 05/25/2017 10:14:20 [id number] [address] [place] [address] 06/06/2018 11:23:23 06/06/2018 12:43:59 [id number] LANIE Mcwilliams 21004_W[address] [address] 06/08/2023 14:34:10 06/08/2023 15:06:58 History and physical examination, occupation [id number] Z02.1 Health Concerns Section Related Observation LastModified by Organization Detai ls LastModified Time None Recorded Concern Status LastModified by Organization Details LastModified Time None Recorded Advance Directives Directive None Recorded Payers Encounter Date Sequence Insurance Name Policy Number Policy العلي Covered Member ID العلي Member ID Guarantor Name 06/08/2023 OC-ESCREEN Oc-Escree n [[id number]] FIFI Acosta
--- NOTE | 2024-07-06 14:42 | AM.OFFWIN_ITS ---
Intake Vital Signs 07/06/24 14:51 Height 5 ft 8.5 in Weight 195 lb BMI 29.2 BP 122/80 Blood Pressure Location Rt brachial Position Sitting Pulse 78 Pulse Source Pulse Oximeter Pulse Oximetry (%) 98 Oxygen Delivery Method Room Air Intake Visit Reasons: EP-inguinal hernia Intake Note: Patient here for inguinal hernia that has been present for over 1 week. Patient Tobacco Use Status: Never used Tobacco Allergies Penicillins Allergy (Intermediate, Verified 07/06/24 14:51) Hives heparin Allergy (Unknown, Verified 07/06/24 14:51) Unknown Do you need a note to return to daycare/school/sports/work: Yes HPI HPI Comments History of Present Illness Details History of Present Illness - The patient is a 33-year-old male pres enting with suspected recurrence of right inguinal hernia. - He reports a previous right inguinal h ernia repair in 2019, performed by Dr. Barker at [facility]. - A few days prior, following lifting a heavy object, he experienced a popping sensation and subsequent pain radiating to his right testicle, reminiscent of previous hernia symptoms. - Despite the presence of pain, no signi ficant swelling or bulge was observed by the patient, although he notes exacerbation of pain with lifting. - Absent are fevers, unbearable pain, or abnormal discharge from the affected area. - Historically, the patient had an inver patricia hernia, which may have contributed to his past surgical procedure and current suspicions. - patient declined a design drafter for the G U exam Physical Exam General: Cooperative, healthy appearing, comfortable, no acute distress and well developed Orientation: Patient oriented x3 Limitations: No lifting anything over 20 pounds for right now Head: Normal to inspection Ears: Hearing grossly normal bilaterally Nose: Normal External nose present Face and sinus: Normal facial exam Eyes: Appearance normal, both eyes and all related structures Neck: Normal visual inspection and Yes full ROM Respiratory: Normal respiratory effort and able to speak in complete sentences. 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 DIC (disseminated intravascular coagulation) Depression Daytime somnolence Central retinal artery occlusion, left eye Bipolar 1 disorder Aorta aneurysm Abnormal CXR Right radial nerve palsy Insomnia Bipolar disorder Chronic anticoagulation History of cardiac arrest Surgical History (Updated 07/06/24 @ 15:07 by LANIE Maria) History of inguinal hernia repair History of open heart surgery S/P AVR H/O aortic valve replacement Family History (Updated 10/24/23 @ 14:47 by Almita Faustin CMA) Maternal Grandfather Breast cancer Diabetes Social History (Updated 10/24/23 @ 14:46 by Almita Faustin CMA) Housing: House Alcohol intake: never Patient Tobacco Use Status: Never used Tobacco e-Cigarette/Vaping Use: Never Used Second Hand Smoke Exposure: No service: No Current occupational status: employed Current occupation: [employer] Current occupational exposures/hazards: Yes ( everything ) Cognitive needs: No Hearing needs: No Vision needs: Yes (Legally blind in left eye) Review of Systems Const All systems reviewed & are unremarkable except as noted in HPI and below Physical Exam Vital Signs: Last Vital Signs Pulse 78 07/06/24 14:51 BP 122/80 07/06/24 14:51 Pulse Ox 98 07/06/24 14:51 Oxygen Delivery Method Room Air 07/06/24 14:51 BMI result Body Mass Index 29.2 Assessment & Plan Assessment & Plan (1) Right inguinal hernia: Code(s): K40.90 - Unilateral inguinal hernia, without obstruction or gangrene, not specified as recurrent Plan: Vital signs are stable, patient well-appearing, physical exam consistent with a possible right inguinal hernia recurrence, no concern for incarceration or strangulation. I?ve guided the patient on signs and symptoms warranting emergency attention. For further assessment, I will coordinate with his primary care provider, Sonia Means PA-C, to arrange an ultrasound for diagnostic confirmation. Activity restriction is advised, and a work note limiting him to lifting no more than 20 pounds will be issued. Patient was informed and verbally consented to the use of an ambient scribe for clinic note documentation during this visit. Coding Level of Care Code Est Pt Level 3 (78834) Diagnoses Right inguinal hernia K40.90
[2024-07-06 14:51] VITALS: BP 122/80; PULSE 78; O2SAT 98; BMI 29.2
== END 2024-07-06 15:10 | disposition home or self-care (01) ==
PROVIDERS: PCP Physician Assistant Medical; Visit Provider Physician Assistant
DX: K40.90 Unilateral inguinal hernia, without obstruction or gangrene, not specified as recurrent (principal)

== ENCOUNTER → 2024-07-06 14:12 | Outpatient (BNVA) | payer OTHER, SELFPAY | PROVIDERS: PCP Physician Assistant Medical; Visit Provider Physician Assistant | DX: K40.90 Unilateral inguinal hernia, without obstruction or gangrene, not specified as recurrent (principal) | CPT/HCPCS: 99212 ==

== ENCOUNTER → 2024-09-12 13:51 | Outpatient (REF) | payer OTHER, SELFPAY ==
--- OUTSIDE RECORDS SUMMARY | 2024-09-12 14:41 | XMS_ITS | Data Portability ---
Author Organization LANIE - [facility], [address] Address [place] [address] Assessment No assessment recorded. Plan of Treatment [...] -UDS Send Out Template DOT completed Shreya Bautista [facility] 06/08/2023 14:47:24 Imaging Results None recorded. Procedure Notes None recorded. Medical Equipment None Reported. Vitals None Recorded Social History None recorded. Functional Status None recorded. Mental Status None recorded. Family History Nothing Reported. Medical History No medical history recorded. Past Encounters Encounter ID Performer Location Encounter Start Date Encounter Closed Date Diagnosis/Indication Diagnosis SNOMED-CT Code Diagnosis ICD10 Code Diagnosis Note [id number] 09005_[facility]Spr[facility] 09005[facility] [address] [facility] [facility] [place] [address] 02/19/2015 09:32:27 02/19/2015 10:28:43 [id number] 09005_[facility] lSpr[facility] 09005_[facility] [facility] [place] [address] 03/21/2015 15:56:46 03/21/2015 16:31:28 [id number] 20995_[facility] _Chi [address] [address] 06/06/2020 19:49:49 06/06/2020 20:08:49 [id number] 20[address] [address] _Chi [address] [address] 2016 16:13:14 2016 16:58:05 [id number] 20994_[facility] _Wes [address] [address] 08/02/2019 10:34:44 08/02/2019 11:26:16 [id number] 09005_Cora lSprings 09005_Cor alSprings [address] [facility] [place] [address] 03/25/2016 18:19:55 03/25/2016 18:58:51 [id number] [address] [place] [address] 07/27/2021 08:03:50 07/27/2021 13:24:44 [id number] [address] [place] [address] 08/24/2021 08:54:36 08/24/2021 10:51:45 [id number] 20994_[facility] 20994_Wes [address] [address] 02/09/2019 10:07:56 02/09/2019 11:16:52 [id number] 2099_[facility] _Wes [address] [address] 11/02/2019 11:07:40 11/02/2019 12:42:25 [id number] 20995_[facility] [facility] al[address] Chi [address] [address] 08/19/2021 12:31:47 08/19/2021 14:34:38 [id number] 09005_Cora lSprings 09005_Cor alSpr[address] [place] [address] 05/25/2017 09:48:06 05/25/2017 10:14:20 [id number] [address] [place] [address] 06/06/2018 11:23:23 06/06/2018 12:43:59 [id number] LANIE Mcwilliams 21004_W[address] [address] 06/08/2023 14:34:10 06/08/2023 15:06:58 History and physical examination, occupation [id number] Z02.1 Health Concerns Section Related Observation LastModified by Organization Detai ls LastModified Time None Recorded Concern Status LastModified by Organization Details LastModified Time None Recorded Advance Directives Directive None Recorded Payers Insurance Date Sequence Insurance Name Policy Number Policy العلي Covered Member ID العلي Member ID Guarantor Name 05/05/2024 OC-ESCREEN Oc-Escree n [[id number]] FIFI Acosta 05/05/2024 [address] [facility] [id number] Barber Acosta [id number] Barber Acosta
== END ==
LOC: HO.SL 13:51
PROVIDERS: PCP Physician Assistant Medical; Visit Provider Physician Assistant Medical
DX: G47.8 Other sleep disorders (principal); R06.89 Other abnormalities of breathing; R53.82 Chronic fatigue, unspecified
CPT/HCPCS: 95806

== ENCOUNTER → 2024-09-12 14:07 | Outpatient (BNV) | payer OTHER, SELFPAY | PROVIDERS: PCP Physician Assistant Medical; Visit Provider Internal Medicine | DX: R06.83 Snoring (principal) | CPT/HCPCS: 95806 ==

== ENCOUNTER 2024-12-27 13:31 | Outpatient (AMB) | payer OTHER, SELFPAY ==
--- NOTE | 2024-12-27 13:46 | A.OFFPC_ITS ---
Vital Signs 12/27/24 13:50 Height 5 ft 8.5 in Weight 201 lb 5 oz BMI 30.2 BP 120/78 Blood Pressure Location Lt brachial Position Sitting Respiration 14 Pulse 83 Pulse Source Pulse Oximeter Temp 98.1 F Temp Source Temporal Artery Scan Pulse Oximetry (%) 97 Oxygen Delivery Method Room Air Intake Visit Reasons: need work note, med refill, paperwork to be filled Allergies Penicillins Allergy (Intermediate, Verified 12/27/24 13:47) Hives heparin Allergy (Unknown, Verified 12/27/24 13:47) Unknown Medication List - Last Reconciled 12/29/24 by LANIE Maria aspirin 81 mg PO DAILY buspirone 15 mg PO BID carvedilol 12.5 mg PO BID fluoxetine 40 mg PO DAILY lamotrigine 150 mg PO BID omeprazole 20 mg PO ONCE prothrombin time/INR test metr As directed rosuvastatin 5 mg PO DAILY trazodone 50 mg PO BEDTIME PRN warfarin 5 mg PO DAILY Tobacco use date assessed: 12/27/24 Dental Screening Dental Screen Date: 12/27/24 Did you have a dental visit in the last 12 months?: Yes Did you have a dental problem in the last 6 months where you did not have access to dental care?: No Was dental information given to patient?: Patient has dentist HPI HPI Comments History of Present Illness Details This is a 34-year-old male with a past medical history of 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 Clinical history if provided by the patient as discharge summary is unavailble at the time of the visit. Patient was taken by ambulance to [facility] with acute chest pain and dyspnea then transferred to [facility] where he underwent cardiac catheterization. Patient was ultrimately diagnosed with pulmonary stenosis. Patient reports he will be undergoing surgery likely in January at [facility]. He provided a note from his deployment engineer, Dr. Gutiérrez. He is unable to perform his job functions. 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 He has forms for completion. ROS: Constitutional: No unexplained weight loss, fever, chills or night sweats. +chronic fatigue. Eyes: Left eye blindness. No vision changes. Respiratory: +PELAYO Cardiovascular: +chest pain with exertion Gastrointestinal: No anorexia, nausea, vomiting or diarrhea. No abdominal pain or blood in stool. Neurologic: No headache, dizziness, syncope. + chronic numbness of right hand due to radial nerve palsy. Psychiatric: No depression or anxiety. No SI/HI. Physical exam: Constitutional: Alert, in no distress. Head: Normocephalic. Neck: Supple, Full range of motion. No lymphadenopathy. Respiratory: Clear to auscultation. Cardiovascular: S1 S2 regular. Mechanical heart sounds. + heart murmur. No edema. Gastrointestinal: Abdomen soft, non-tender, non-distended. Normal bowel sounds. No palpable masses. 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 DIC (disseminated intravascular coagulation) Depression Daytime somnolence Central retinal artery occlusion, left eye Bipolar 1 disorder Aorta aneurysm Abnormal CXR Right radial nerve palsy Insomnia Bipolar disorder Chronic anticoagulation History of cardiac arrest Surgical History (Updated 07/06/24 @ 15:07 by LANIE Maria) History of inguinal hernia repair History of open heart surgery S/P AVR H/O aortic valve replacement Family History (Updated 12/27/24 @ 13:50 by Yakelin Laurent CMA) Maternal Grandfather Breast cancer Diabetes Mother FH: mental illness Father FH: mental illness Schizo affective schizophrenia Social History (Updated 12/27/24 @ 13:50 by Yakelin Laurent CMA) Housing: House Alcohol intake: never Patient Tobacco Use Status: Never used Tobacco e-Cigarette/Vaping Use: Never Used Second Hand Smoke Exposure: No service: No Current occupational status: employed Current occupation: [employer] Current occupational exposures/hazards: Yes ( everything ) Cognitive needs: No Hearing needs: No Vision needs: Yes (Legally blind in left eye) Questionnaire Thrive Questionnaire Date Thrive assessed: 05/07/24 I am a: Patient What is your living situation today?: I have a steady place to live Within the past 12 months, did the food you bought not last and you didn't have the money to get more?: Never true Within the past 12 months, did you worry whether your food would run out before you got money to buy more?: Never true Do you have trouble paying for medicines?: No Do you have trouble getting transportation to medical appointments?: No Do you have trouble paying your heating and electricity bill?: No Do you have trouble taking care of your child, family member or friend?: No Do you have trouble with day-to-day activities such as bathing, preparing meals, shopping, managing finances, etc.?: No Are you currently unemployed and looking for a job?: No Are you interested in more education?: No Please select the resources that you would like help with: None Currently or been in a relationship where the following occur: No concerns reported THRIVE Score: 0 PRATIK-7 AMB Questionnaire PRATIK-7 Date PRATIK - 7 assessed: 10/24/23 Source: Developed by Drs. Gasper Pavon, Caprice Melchor, Barber Goodwin and colleagues, with an educational brian from [employer]. Physical exam (Primary Care) Vital Signs: Last Vital Signs Temp 98.1 F 12/27/24 13:50 Pulse 83 12/27/24 13:50 Resp 14 12/27/24 13:50 BP 120/78 12/27/24 13:50 Pulse Ox 97 12/27/24 13:50 Oxygen Delivery Method Room Air 12/27/24 13:50 BMI result Body Mass Index 30.2 Tobacco/Smoking Status: Tobacco use Status Tobacco use date assessed 12/27/24 12/27/24 13:53 Patient Tobacco Use Status Never used Tobacco 12/27/24 13:53 e-Cigarette/Vaping Use Never Used 12/27/24 13:53 Thrive Assessment: Date of Thrive Assessment Date Thrive assessed 05/07/24 12/27/24 13:53 Currently or been in a relationship where the following occur: No concerns reported Coding Level of Care Code Est Pt Level 4 (13958) Complex EM visit Add On G2211 Diagnoses Nonrheumatic pulmonary valve stenosis I37.0 Cardiac valve disease etiology: nonrheumatic History of transposition of great arteries Z87.74 H/O aortic valve replacement Z95.2 Chronic anticoagulation Z79.01 Assessment & Plan Assessment & Plan (1) Pulmonary stenosis: Code(s): I37.0 - Nonrheumatic pulmonary valve stenosis Category: Medical Qualifiers: Cardiac valve disease etiology: nonrheumatic Qualified Code(s): I37.0 - Nonrheumatic pulmonary valve stenosis (2) History of transposition of great arteries: Code(s): Z87.74 - Personal history of (corrected) congenital malformations of heart and circulatory system Category: Medical (3) H/O aortic valve replacement: Comment: On-X valve Code(s): Z95.2 - Presence of prosthetic heart valve Category: Surgical (4) Chronic anticoagulation: Code(s): Z79.01 - MCC (current) use of anticoagulants Category: Medical Plan 34 year old male with extensive cardiac history on chronic anticoagulation preseting for hospital follow up. He has follow up scheduled with [facility] and will be undergoing surgery. It is not anticipated he will be able to return to work soon. He cannot perform lifitng, physical exertion, stenurous activity. Forms completed for patient. Follow up scheduled.
[2024-12-27 13:50] VITALS: BP 120/78; PULSE 83; RESP 14; TEMP 36.7; O2SAT 97; BMI 30.2
--- OUTSIDE RECORDS SUMMARY | 2024-12-27 17:05 | XMS_ITS ---
Author Name [facility] Organization Unknown Care Team Organization Name Specialty Phone Email Start Date End Da joselo [facility] Will Angeles DO Primary Care 11/11/202210/05
== END 2024-12-27 14:23 | disposition home or self-care (01) ==
LOC: HO.HMCFM 13:31
PROVIDERS: PCP Physician Assistant Medical; Visit Provider Physician Assistant Medical
DX: I37.0 Nonrheumatic pulmonary valve stenosis (principal); Z87.74 Personal history of (corrected) congenital malformations of heart and circulatory system; Z95.2 Presence of prosthetic heart valve; Z79.01 Long term (current) use of anticoagulants

== ENCOUNTER → 2024-12-27 13:31 | Outpatient (BNVA) | payer OTHER, SELFPAY | PROVIDERS: PCP Physician Assistant Medical; Visit Provider Physician Assistant Medical | DX: I37.0 Nonrheumatic pulmonary valve stenosis (principal); Z95.1 Presence of aortocoronary bypass graft; Z95.2 Presence of prosthetic heart valve; Z87.74 Personal history of (corrected) congenital malformations of heart and circulatory system; Z79.01 Long term (current) use of anticoagulants | CPT/HCPCS: 99212 ==